=== PATIENT | male | born 1965 | race African-American/Black ===

== ENCOUNTER 2025-11-09 21:08 | Emergency (ER) | payer OTHER ==
[~2025-11-09] VITALS: Ht 182.9 cm; Wt 69.0 kg
[2025-11-09 21:11] VITALS: TEMP 101.7; O2SAT 97
[2025-11-09] MEDS: SODIUM CHLORIDE 0.9% (SEPSIS BOLUS) IV ONE (21:43)
[2025-11-09] MEDS: PIPERACILLIN/TAZO 3.375G/50ML 50 ML IV ONE (21:46)
[2025-11-09 21:58] LABS: HEMATOCRIT. 46.7 % (42.0-52.0); HEMOGLOBIN. 15.1 g/dL (14.0-18.0); MEAN PLATELET VOLUME 9.4 fl (7.4-10.4); PLATELET 153 x1000/uL (130-400); RED BLOOD CELL COUNT 5.22 mill/uL (4.7-6.1); RED CELL DISTRIBUTION WIDTH 14.5 % (11.6-14.6)
[2025-11-09 22:06] LABS: INR 1.0
[2025-11-09 22:07] LABS: CREATININE 0.5 mg/dL (0.6-1.3); UREA NITROGEN BLOOD 22 mg/dL (9-23)
[2025-11-09 22:08] LABS: PROTEIN TOTAL 7.2 g/dL (6.0-8.3)
[2025-11-09 22:09] LABS: ASPARTATE AMINOTRANSFERASE 21 IU/L (<34); BILIRUBIN DIRECT 0.3 mg/dL (<=3.0)
[2025-11-09 22:10] LABS: BILIRUBIN TOTAL 0.8 mg/dL (0.1-1.0)
[2025-11-09 22:12] LABS: TROPONIN I HIGH SENSITIVITY < 4 ng/L (3.0-53)
[2025-11-09] MEDS: VANCOMYCIN 1G PREMIX 200 ML IV ONE (22:23)
[2025-11-09] MEDS: ACETAMINOPHEN 1000MG/100ML 100 ML IV ONE (22:28)
[2025-11-09 22:39] LABS: BAND% 2.0 % (1.0-6.0); LYMPHOCYTES % MANUAL 6.0 % (20.0-50.0); MONOCYTES % MANUAL 2.0 % (2.0-8.0); NEUTROPHILS % MANUAL 90.0 % (45.0-75.0); PLATELET ESTIMATE NORMAL
[2025-11-10] MEDS: LEVETIRACETAM 1000MG PREMIX 100 ML IV NR (01:22)
[2025-11-10 01:36] VITALS: O2SAT 95
[2025-11-10 01:53] VITALS: BP 107/58; PULSE 115; RESP 16
[2025-11-10] MEDS: KETOROLAC 15MG/ML VIAL IV ONE (01:53)
[2025-11-10] MEDS ORDERED: LEVETIRACETAM 1000MG PREMIX 100 ML IV ONE (09:00)
== END 2025-11-10 01:55 | disposition short-term general hospital (02) ==
LOC: ER 21:08 → EDBEDREQ 11-10 00:11 → EDBEDREQTM 11-10 00:11 → ER 11-10 01:55 → CMPBEDREQ 11-10 02:06
DX: G93.40 Encephalopathy, unspecified (principal); A41.9 Sepsis, unspecified organism; E87.6 Hypokalemia; Z79.899 Other long term (current) drug therapy
CPT/HCPCS: 99291; 96365; 70450; 96366; 96367 ×2; 96375 ×2; 80076; 80048; 83605; 83690; 83735; 85025; 85610; 86850; 86900; 86901; 87040; 87186; 84484; 87077; 36415; 84145; 71045; 93005; J2543; J3373; J1885; J1953; J7030; J0131